=== PATIENT | female | born 1995 | race Two or more races ===

== ENCOUNTER 2018-11-15 08:02 | Emergency (ER) | payer OTHER ==
--- NOTE | 2018-11-15 08:04 | EDPHY ---
H & P Time Seen by Provider: 11/15/18 08:04 Constitutional: Initial Vital Signs Temperature (C) 36.8 C 11/15/18 08:06 Heart Rate 67 11/15/18 08:06 Respiratory Rate 16 11/15/18 08:06 Blood Pressure 131/77 H 11/15/18 08:06 O2 Sat (%) 96 11/15/18 08:06 O2 Delivery Mode Room Air Home Medications: Medication Instructions Recorded NK [No Known Home Meds] 11/15/18 Medical Decision Making ED Course/Re-evaluation: CHIEF COMPLAINT: Head injury HISTORY OF PRESENT ILLNESS: The patient is a 23 y/o female complaining of a head injury today. The patient was playing kickball when she believes another player's shoulder hit her head. She remembers the events before and after being hit. She denies loss of consciousness, neurological deficits or vomiting. She is nauseated and feels mildly off balance. No fever, body aches, lightheadedness, chest pain, heart palpitations, shortness of breath, cough, abdominal pain, urinary or bowel complaints, numbness, paresthesias. REVIEW OF SYSTEMS: A 10 point review of systems was performed and is negative with the exception of the elements mentioned in the history of present illness. PHYSICAL EXAM: HR, BP, O2 Sat, RR. Temp noted General Appearance: Alert, well hydrated, appropriate, and non-toxic appearing. Head: Atraumatic without scalp tenderness or obvious injury Eyes: Pupils equal, round, reactive to light and accommodation, EOMI, no trauma , no injection. Ears: Clear bilaterally, no perforation, normal landmarks Nose: Atraumatic, no rhinorrhea, clear. Throat: There is no erythema or exudates, no lesions, normal tonsils, mucus membranes moist. Neck: Supple, 2+ carotid upstroke, nontender, no lymphadenopathy. Respiratory: No retractions, no distress, no wheezes, and no accessory muscle use. Lungs are clear to auscultation bilaterally. Cardiovascular: Regular rate and rhythm, no murmurs, rubs, or gallops. Bilateral carotid, radial, dorsalis pedis, and posterior tibial pulses intact. Good capillary refill all extremities. Gastrointestinal: Abdomen is soft, nontender, non-distended, no masses, no rebound, no guarding, no peritoneal signs. Musculoskeletal: Normal active ROM of all extremities, atraumatic. Neurological: Alert, appropriate, and interactive. The patient has normal DTRs and non-focal cranial nerves, motor, sensory, and cerebellar exam. Skin: No rashes, good turgor, no nodules on palpation. Past medical history: Denies Past surgical history: Denies Family history: Denies Social history: Student at , single, lives in [place] DIAGNOSTICS/PROCEDURES/CRITICAL CARE TIME: Not indicated. DIFFERENTIAL DIAGNOSIS: The differential diagnosis for the patient's head injury included but was not limited to concussion, skull fracture, intra-parenchymal contusion, subarachnoid , subdural and epidural hematoma. MEDICAL DECISION MAKING: The patient is a 23 y/o female presenting with a head injury today. The patient was playing kickball when she believes another player's shoulder hit her head. She remembers the events before and after being hit. She denies loss of consciousness, neurological deficits or vomiting. On exam she has a normal exam including no hemotympanum, normal pupils, and a normal neuro exam. I have discussed the risks and benefits associated with having a CT. She does not meet [place] Head CT or [facility] Head CT criteria. She is comfortable with not having a CT at this time. I have advised her to follow up with Dr. Nguyen and follow post-concussion precautions. Return precautions provided; patient is comfortable with this plan. Departure - Departure Disposition: Home, Routine, Self-Care Clinical Impression: Head injury Qualifiers: Encounter type: initial encounter Qualified Code(s): S09.90XA - Unspecified injury of head, initial encounter Concussion Qualifiers: Encounter type: initial encounter Loss of consciousness presence/duration: without LOC Qualified Code(s): S06.0X0A - Concussion without loss of consciousness, initial encounter Condition: Good Instructions: Concussion (ED), Head Injury (ED) Additional Instructions: 1. Apply ice to sore areas and take 600mg ibuprofen every 6-8 hours or 650mg Tylenol every 4-6 hours for pain for the next few days. 2. Cognitive rest while symptoms are present. Avoid screen time including TV, phones, and computers until symptoms improve. 3. Physical rest while symptoms are present. Avoid any activities that could put you at further risk for a head injury until your symptoms resolve including contact sports, bicycling, etc. This may be 2 weeks or longer. 4. Follow up with Dr. Nguyen, head injury specialist, for unimproved symptoms over the next 10-14 days. It's not uncommon to experience fatigue, mood swings, and difficulty concentrating with concussions. 5. Return to the ED for severe headache, weakness or numbness on one side of your body, vision changes, or other worsening of condition. Referrals: MADELEINE BAILEY MD [Primary Care Provider] - As per Instructions Tasha Nguyen MD [Medical Doctor] - As per Instructions Stand Alone Forms: School Excuse Report Scribed for: Rito Luis Report Scribed by: Jaimee Narvaez Date of Report: 11/15/18 Time of Report: 08:26
[2018-11-15 08:08] VITALS: BP 131/77
== END 2018-11-15 09:08 | disposition home or self-care (01) ==
DX: S06.0X0A Concussion without loss of consciousness, initial encounter (principal); Y93.79 Activity, other specified sports and athletics; Y92.838 Other recreation area as the place of occurrence of the external cause